=== PATIENT | female | born 1990 | race Asian ===

== ENCOUNTER 2024-11-20 23:30 | Emergency (ER) | payer SELFPAY ==
[2024-11-20 23:33] VITALS: BP 136/91; RESP 18; TEMP 37.2; O2SAT 98
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
[2024-11-21 00:09] VITALS: PULSE 89
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
[2024-11-21 03:53] LABS: Internal QC Validated? YES +Cl - CLEAR BKGD; Pregnancy, Serum, hCG Quali. NEGATIVE Negative; Record Kit Lot#, Serum Preg. 0000962302
[2024-11-21 04:13] LABS: Anion Gap 15 (5-15); BUN 13 mg/dL (4-19); BUN/Creat Ratio 20.6 RATIO (10-20); Calcium,Total 8.8 mg/dL (7.6-11.0); Carbon Dioxide 18.4 mmol/L (21.0-32.0); Chloride 107 mmol/L (98-108); Glucose 107 mg/dL (70-99); Potassium 3.6 mmol/L (3.3-5.1)
[2024-11-21 04:29] VITALS: BP 133/78; PULSE 81; RESP 16; TEMP 36.9; O2SAT 99
== END 2024-11-21 04:29 | disposition home or self-care (01) ==
PROVIDERS: Emergency Provider Emergency Medicine; Visit Provider Emergency Medicine
DX: M54.2 Cervicalgia (principal); F17.290 Nicotine dependence, other tobacco product, uncomplicated; F32.A Depression, unspecified; Z79.51 Long term (current) use of inhaled steroids; Z79.899 Other long term (current) drug therapy; Y04.8XXA Assault by other bodily force, initial encounter
CPT/HCPCS: 70496; 70498; 80048; 84703; 99285; Q9967; A4216

== ENCOUNTER 2024-11-21 00:20 | Outpatient (REF) | payer SELFPAY ==
--- NOTE | 2024-11-23 12:27 | ED.RN ---
pt. here saturday11/23/2024. for work note r/t to being seen on saturday she is requesting all week off.
== END 2024-11-21 04:30 | disposition home or self-care (01) ==
LOC: EDREF 00:20
DX: Z04.41 Encounter for examination and observation following alleged adult rape (principal)